=== PATIENT | female | born 1990 | race Caucasian/White ===

== ENCOUNTER 2022-05-24 20:44 | Emergency (ER) | payer SELFPAY ==
[2022-05-24 20:53] VITALS: BP 107/70; PULSE 73; RESP 18; TEMP 97.8; BMI 21.6
== END 2022-05-25 06:58 | disposition home or self-care (01) ==
LOC: FER 20:44
DX: F10.929 Alcohol use, unspecified with intoxication, unspecified (principal)
CPT/HCPCS: 99282-25